=== PATIENT | female | born 1950 | race Two or more races ===

== ENCOUNTER 2025-03-01 10:35 | Emergency (ER) | payer OTHER ==
[~2025-03-01] VITALS: Ht 160 cm; Wt 74.8 kg
[2025-03-01] MEDS ORDERED: TRADJENTA5 MG PO (11:13)
[2025-03-01] MEDS ORDERED: VALSARTAN80 MG PO (11:13)
[2025-03-01] MEDS ORDERED: PROTONIX40 MG PO (11:14)
[2025-03-01] MEDS ORDERED: CRESTOR40 MG PO (11:14)
[2025-03-01 12:20] LABS: BASO % 0.4 % (0.1-1.2); EOS # 0.12 (0.04-0.54); EOS % 1.1 % (0.7-7.0); HEMATOCRIT 35.6 % (34.1-44.9); HEMOGLOBIN 11.5 g/dL (11.2-15.7); LYMPH # 2.54 (1.18-3.74); LYMPH % 23.1 % (19.3-53.1); MEAN CORPUSCULAR HEMOGLOBIN 26.3 pg (25.6-32.2); MONO # 0.72 (0.24-0.82); MONO % 6.5 % (4.7-12.5); NEUT # 7.57 (1.56-6.13); NEUT % 68.7 % (34.0-71.1); PLATELET COUNT 457 K/uL (163-369); RED BLOOD COUNT 4.38 M/uL (3.93-5.22); RED CELL DISTRIBUTION WIDTH 14.1 % (11.6-14.4)
[2025-03-01 12:52] LABS: ALBUMIN 3.4 gm/dL (3.4-5.0); BILIRUBIN TOTAL 0.77 mg/dL (0.3-1.2); CREATININE SERUM 1.46 mg/dL (0.55-1.02); GFR 34.83; GLOBULINA 5.2 G/DL (2.4-3.5); POTASSIUM 4.51 mEq/L (3.5-5.1); TOTAL PROTEIN 8.6 gm/dL (6.4-8.2)
[2025-03-01 14:21] LABS: URINE APPEARANCE Clear; URINE BILIRRUBIN Negative (NEGATIVE); URINE BLOOD Negative; URINE COLOR Yellow; URINE GLUCOSE Negative (NEGATIVE); URINE KETONE Negative (NEGATIVE); URINE LEUKOCYTE Small; URINE NITRATE Negative; URINE PROTEIN Negative (NEGATIVE); URINE UROBILINOGEN 0.2 E.U./dl
[2025-03-01 14:25] LABS: URINE BACTERIA 313.2 uL (0.0-1933); URINE EPITHELIAL CELLS 14.8 uL (0.0-38.8); URINE WBC 31.4 uL (0.0-23.2)
[2025-03-01] MEDS ORDERED: MEPERIDINE HCL/PF 25 MG/ML VIAL IV SCH (14:45)
[2025-03-01 14:57] LABS: URINE RBC 1.6 uL (0.0-20.8)
[2025-03-01] MEDS ORDERED: MORPHINE SULFATE 2 MG/ML CARTRIDGE IV ONE (15:00)
[2025-03-01] MEDS ORDERED: PYRIDIUM DS200 MG PO (15:30)
[2025-03-01] MEDS ORDERED: MACROBID 100 M100 MG PO (15:30)
== END 2025-03-01 15:51 | disposition home or self-care (01) ==
LOC: ER 11:01
PROVIDERS: General Practice
DX: N23 Unspecified renal colic (principal); N28.9 Disorder of kidney and ureter, unspecified; N39.0 Urinary tract infection, site not specified; K80.20 Calculus of gallbladder without cholecystitis without obstruction